=== PATIENT | female | born 1930 | race Hispanic/Latino ===

== ENCOUNTER 2017-11-09 09:02 | Observation (INO) | payer MEDICARE, OTHER ==
[2017-11-06 14:04] LABS: BASOPHILS # (AUTO) 0.1 (0.0-0.1); BASOPHILS % 0.9 % (0.0-1.0); EOSINOPHILS # (AUTO) 0.4 (0.0-0.4); EOSINOPHILS % 7.2 % (0.0-6.0); HEMATOCRIT 38.6 % (34.2-44.1); HEMOGLOBIN 12.3 g/dL (12.0-16.0); LYMPHOCYTES # (AUTO) 2.1 (1.0-3.2); LYMPHOCYTES % 36.9 % (18.0-39.1); MEAN CORPUSCULAR HEMOGLOBIN 30.8 pg (28-32); MEAN CORPUSCULAR HGB CONC 31.9 g/dL (31-35); MEAN CORPUSCULAR VOLUME 96.5 fL (81-99); MONOCYTES # (AUTO) 0.3 (0.2-0.8); MONOCYTES % 5.8 % (4.4-11.3); NEUTROPHILS # (AUTO) 2.8 (2.1-6.9); PLATELET COUNT 316 x10e3/uL (140-360); RED CELL DISTRIBUTION WIDTH 12.6 % (11.7-14.4)
[2017-11-06 14:33] LABS: ANION GAP 15.5 mmol/L (8-16); BLOOD UREA NITROGEN 26 mg/dL (7-26); BUN/CREATININE RATIO 31 (6-25); CALCIUM 9.3 mg/dL (8.4-10.2); CARBON DIOXIDE 27 mmol/L (22-29); CHLORIDE 102 mmol/L (98-107); CREATININE, SERUM 0.85 mg/dL (0.57-1.11); EST GLOMERULAR FILTRATION RATE > 60 ML/MIN (60-); GLUCOSE 140 mg/dL (74-118); SODIUM 139 mmol/L (136-145)
[2017-11-06 14:36] LABS: POTASSIUM 5.5 mmol/L (3.5-5.1)
--- NOTE | 2017-11-06 14:49 | Diagnostic Imaging Report ---
PROCEDURE: Frontal and lateral views of the chest. COMPARISON: None. INDICATIONS: PREOP KNEE SURGERY FINDINGS: Lines/tubes: None. Lungs: The lungs are well inflated and grossly clear. There is no evidence of pneumonia or pulmonary edema. Pleura: There is no pleural effusion or pneumothorax. Heart and mediastinum: The heart and the mediastinum are normal. Bones: No acute bony abnormality. Generalized osteopenia. Degenerative changes in the thoracic spine. IMPRESSION: 1. No acute cardiopulmonary abnormalities. uFad Turcios M.D. Dictated by: Fuad Turcios M.D. on 11/06/2017 at 14:58 Electronically approved by: Fuad Turcios M.D. on 11/06/2017 at 14:58
[~2017-11-09] VITALS: Ht 152.4 cm; Wt 63.5 kg
[~2017-11-09 09:02] MED LIST: CEFAZOLIN SOD 2 GM/D5W 50ML 50 ML IV ONE; DEXAMETHASONE SOD PHOS 10 MG/1 ML VIAL ONE; DIOVAN160 MG PO; GABAPENTIN 300 MG CAP ONE; LEXAPRO10 MG PO; METFORMIN HCL1000 MG PO; PANTOPRAZOLE SO40 MG PO; ROPIVACAINE 246.25 MG, EPINEPHRINE HCL 1:1000 0.5 MG, CLONIDINE HCL 0.08 MG, KETOROLAC ... INJ ONE; SIMVASTATIN20 MG PO
--- OUTSIDE RECORDS SUMMARY | 2017-11-09 09:04 | XMS REPORT | Clinical Summary ---
Author Author [facility] Address Unknown Phone Unavailable Care Team Providers Care Sales Warehouse Driver Name Role Phone PCP Unavailable Allergies Not on File Current Medications Not on file Active Problems Not on file Encounters Date Type Specialty Care Team Description 06/13/2017 Emergency Emergency Medicine after 11/08/2016 Social History Tobacco Use Types Packs/Day Years Used Date Never Assessed Sex Assigned at Date Recorded Not on file Last Filed Vital Signs Not on file Plan of Treatment Not on file Results Not on fileafter 11/08/2016
--- OUTSIDE RECORDS SUMMARY | 2017-11-09 09:04 | XMS REPORT ---
Author [facility] Address Unknown Phone Unavailable Care Team Providers Care Sales Process Manager Name Role Phone ASHLEE MERCHANT DAIJA Unavailable KERMIT BURNS Unavailable Unavailable Problems This patient has no known problems. Allergies, Adverse Reactions, Alerts This patient has no known allergies or adverse reactions. Medications This patient has no known medications. Encounters Start Date/Time End Date/Time Encounter Type Admission Type Attending Clinicians Care Facility Care Department Encounter ID 2017-06-07 13:42:00 2017-06-07 13:42:00 Emergency E [facility] MED [id number] Results Test Description Test Time Test Comments Text Results Atomic Results Result Comments XR KNEE 2V.-LEFT 2017-06-07 14:37:44 Dictation location [id number] knee 2 viewsHISTORY: Pain.COMMENT: The bones are osteoporotic. There is no acute fracture ordislocation. There is a small joint effusion. There is significantnarrowing of the patellofemoral, medial and lateral knee joints withchondrocalcinosis. There are scattered vascular calcifications. Softtissues are intact.Impression:1. Osteoporosis with tricompartment degenerative joint disease,chondrocalcinosis and small joint effusion.2. Nothing acute seen. CHEST 2 VIEWS [facility] [address] [address] Patient Name: ALEXA WILDER MR #: [id number] : 1930 Age/Sex: 87/F Req # : [id number] Adm Physician: Ordered by: KERMIT BURNS MD Report #: [id number] Location: OR Room/Bed: Procedure: [id number] DX/CHEST 2 VIEWS Exam Date: 11/06/17 Exam Time: 1430 REPORT STATUS: Signed PROCEDURE: Frontal and lateral views of the chest. COMPARISON: None. INDICATIONS: PREOP KNEE SURGERY FINDINGS: Lines/tubes: None. Lungs: The lungs are well inflated and grossly clear. There is no evidence of pneumonia or pulmonary edema. Pleura: There is no pleural effusion or pneumothorax. Heart and mediastinum: The heart and the mediastinum are normal. Bones: No acute bony abnormality. Generalized osteopenia. Degenerative changes in the thoracic spine. IMPRESSION: 1. No acute cardiopulmonary abnormalities. Seven Turcios M.D. Dictated by: Seven Turcios M.D. on 11/06/2017 at 14:58 Electronically approved by: Seven Turcios M.D. on 11/06/2017 at 14:58 Dictated By: SEVEN TURCIOS MD 1458 Transcribed By: DWIGHT on 11/06/17 1458 COPY TO: KERMIT BURNS MD
[2017-11-09] MEDS ORDERED: CELECOXIB 200 MG CAP PO ONE (09:25)
[2017-11-09] MEDS ORDERED: LIDOCAINE 2% /EPINEPHRINE 20 ML SDV INJ ONE (09:40)
[2017-11-09] MEDS ORDERED: BACITRACIN 50,000 UNIT VIAL ONE (10:06)
[2017-11-09] MEDS ORDERED: TRANEXAMIC ACID 1,000 MG/10 ML ML ONE (10:06)
[2017-11-09] MEDS ORDERED: MUPIROCIN 2% OINT 22 GM TUBE ONE (10:06)
[2017-11-09] MEDS ORDERED: SODIUM CHLORIDE 0.9% 1000ML 1,000 ML IV SCH (12:13)
[2017-11-09] MEDS ORDERED: DOCUSATE SODIUM 100 MG CAP PO PRN (12:15)
[2017-11-09] MEDS ORDERED: KETOROLAC TROMETHAMINE 30 MG/ML VIAL IV PRN (12:15)
[2017-11-09] MEDS ORDERED: ZOLPIDEM TARTRATE 5 MG TAB PO PRN (12:15)
[2017-11-09] MEDS ORDERED: ONDANSETRON HCL INJ 2 MG/ML VIAL IV PRN (12:15)
[2017-11-09] MEDS ORDERED: PROMETHAZINE HCL (IM) 25 MG/ML VIAL INJ PRN (12:15)
[2017-11-09] MEDS ORDERED: DIPHENHYDRAMINE HCL INJ 50 MG/ML VIAL IM/IV PRN (12:15)
[2017-11-09] MEDS ORDERED: FENTANYL CITRATE/PF 100MCG/2 ML INJ ONE ×2 (13:45→18:33)
--- NOTE | 2017-11-09 13:46 | Diagnostic Imaging Report ---
PROCEDURE:KNEE LEFT 1-2 VIEWS TECHNIQUE:AP and lateral views left knee INDICATION:Postop evaluation COMPARISON:None. FINDINGS: See conclusion. CONCLUSION: 1. Total left knee arthroplasty intact and in anatomic alignment. 2. Expected regional postsurgical changes without acute abnormality. Dictated by: Vamshi Nunez M.D. on 11/09/2017 at 13:55 Electronically approved by: Vamshi Nunez M.D. on 11/09/2017 at 13:55
[2017-11-09] MEDS ORDERED: CEFAZOLIN SOD 1 GM/NS 50ML 50 ML IV SCH (14:00)
[2017-11-09] MEDS: CELECOXIB 200 MG CAP PO SCH (17:00)
[2017-11-09] MEDS ORDERED: SODIUM CHLORIDE 0.9% 50ML 50 ML ONE (17:43)
[2017-11-09] MEDS: CEFAZOLIN SOD 1 GM VIAL IV SCH (18:00)
[2017-11-09] MEDS: ACETAMINOPHEN 1000 MG/100 ML IV SCH ×2 (18:00→23:50)
[2017-11-09] MEDS ORDERED: MIDAZOLAM HCL 2 MG/2 ML VIAL ONE (18:33)
[2017-11-09] MEDS ORDERED: ONDANSETRON HCL INJ 2 MG/ML VIAL ONE (18:42)
[2017-11-09] MEDS ORDERED: EPHEDRINE SULFATE INJ 50 MG/10 ML SYR ONE (18:42)
[2017-11-09] MEDS ORDERED: PROPOFOL IV EMULSION 10 MG/ML 20 ML VIAL ONE (18:42)
[2017-11-09] MEDS ORDERED: SEVOFLURANE INHAL SOLN 250 ML PEN BTL ONE (18:42)
[2017-11-09] MEDS ORDERED: LIDOCAINE HCL 2% LOCAL INJ 5 ML SDV VIAL INJ ONE (18:42)
[2017-11-09 20:05] VITALS: BP 133/69
--- OUTSIDE RECORDS SUMMARY | 2017-11-09 20:29 | XMS REPORT | Clinical Summary ---
Author Author [facility] Address Unknown Phone Unavailable Care Team Providers Care Wild Life Photographer Name Role Phone PCP Unavailable Allergies Not [...]
[2017-11-09 20:49] VITALS: BP 134/60
[2017-11-09 22:00] VITALS: BP 134/60
[2017-11-09] MEDS: ASPIRIN 325 MG TAB PO SCH (22:30)
[2017-11-10] MEDS: CEFAZOLIN SOD 1 GM VIAL IV SCH ×2 (01:56→10:07)
[2017-11-10 02:30] VITALS: BP 119/57
[2017-11-10] MEDS: ACETAMINOPHEN 1000 MG/100 ML IV SCH ×2 (05:43→11:43)
[2017-11-10 06:05] VITALS: BP 115/56
[2017-11-10 07:10] LABS: HEMATOCRIT 30.5 % (34.2-44.1); HEMOGLOBIN 9.8 g/dL (12.0-16.0)
[2017-11-10 08:12] VITALS: BP 107/63
[2017-11-10] MEDS: CELECOXIB 200 MG CAP PO SCH (08:18)
[2017-11-10] MEDS: ASPIRIN 325 MG TAB PO SCH (08:18)
--- NOTE | 2017-11-10 08:33 | Consultation ---
DATE OF CONSULTATION: November 10, 2017 MEDICINE CONSULT REASON FOR CONSULT: Medical management. HISTORY OF PRESENT ILLNESS: This is an 87-year-old woman who underwent elective left total knee replacement on Thursday, November 09, 2017. This surgery was performed successfully by Dr. Rolo Aguiar. The patient tolerated the surgery well. The patient voices no complaints. The patient states her pain is well controlled. The patient denies any chest pain, shortness of breath or cough. Chest x-ray performed 3 days prior to admission did not reveal any intrathoracic pathology. Blood work done on the day of surgery revealed a potassium of 5. The patient's hemoglobin 3 days prior to surgery was 12.3 g/dL. Today, hemoglobin is 9.8 g/dL. REVIEW OF SYSTEMS GENERAL: Weight is stable. No fever or chills. No fatigue. HEENT: No headaches. No visual changes. CARDIOVASCULAR/RESPIRATORY: No chest pain, shortness of breath or cough. GI: No nausea, vomiting or diarrhea. : No UTI. The patient's Carlos catheter has been removed. NEUROMUSCULAR: The patient states her left knee pain is well controlled. ALLERGIES: CODEINE. FAMILY HISTORY: Noncontributory. SOCIAL HISTORY: This woman is . She lives with her adult son. No history of tobacco, alcohol abuse. SURGICAL HISTORY 1. Left total knee replacement on November 09, 2017. 2. Right total knee replacement. 3. Open cholecystectomy. 4. Total abdominal hysterectomy with salpingo-oophorectomy. 5. Appendectomy. HOME MEDICATIONS 1. Lexapro 10 mg a day. 2. Metformin 1000 mg a day. 3. Pantoprazole 40 mg daily. 4. Simvastatin 20 mg at bedtime. 5. Valsartan 160 mg daily. PAST MEDICAL HISTORY 1. Type 2 diabetes mellitus. 2. Hypertensive heart disease. 3. GERD. 4. Depression. 5. Hyperlipidemia. 6. Bilateral knee degenerative joint disease. 7. Generalized osteoarthritis. PHYSICAL EXAMINATION GENERAL: She is awake, alert and fully oriented. She is very pleasant and cooperative with exam. Her adult son is at bedside. VITALS: Height is 5 feet zero inches, weight 140 pounds. Calculated body mass index 27. Blood pressure 115/56, pulse 58, respiratory rate 18, temperature 96, oxygen saturation is 97% on room air. INTEGUMENT: Skin is warm and dry. No pallor. HEENT: Clear conjunctivae. Anicteric sclerae with moist mucous membranes. NECK: Supple. No evidence of jugular venous distention. CARDIOVASCULAR: Regular rate and rhythm with an S3 and S4 gallop. LUNGS: No rales. No rhonchi. No wheezes. ABDOMEN: Benign. EXTREMITIES: No edema but she does have osteoarthritic joint deformities in her hands. The patient has sequential compression devices in place on her lower extremities. NEUROLOGIC: Intact. No gross focal neurologic deficits appreciated. DIAGNOSES 1. Status post left total knee replacement. 2. Type 2 diabetes mellitus. 3. Hypertensive heart disease. 4. Acute postoperative anemia. PLAN 1. Mobilize with physical therapy today. 2. Pain control. 3. Follow hemoglobin and hematocrit. 4. Blood pressure control. 5. Blood glucose control. 6. Discontinue intravenous fluids since the patient may have underlying diastolic heart failure. 7. Stop intravenous ketorolac since this could affect her kidney function particularly at her age. 8. Discontinue telemetry. 9. Encourage incentive spirometer usage every hour from 7 am to 7 pm. I would like to thank Dr. Aguiar for this very generous consult. I spent 45 minutes in the care of this patient. Job#: [id number] AMINTA IVY
[2017-11-10 08:37] LABS: ALBUMIN/GLOBULIN RATIO 1.1 (0.8-2.0); ANION GAP 13.1 mmol/L (8-16); CALCIUM 7.9 mg/dL (8.4-10.2); CREATININE, SERUM 0.91 mg/dL (0.57-1.11); POTASSIUM 5.1 mmol/L (3.5-5.1)
[2017-11-10] MEDS ORDERED: PANTOPRAZOLE SOD 40 MG TABEC PO SCH (09:00)
[2017-11-10] MEDS ORDERED: VALSARTAN 160 MG TAB PO SCH (09:00)
[2017-11-10] MEDS ORDERED: ESCITALOPRAM OXALATE 10 MG TAB PO SCH (09:00)
--- NOTE | 2017-11-10 09:34 | Operative Report ---
DATE OF PROCEDURE: November 09, 2017 STRUCTURAL MANAGER: Mesfin Bartholomew PA-C The patient was brought to the operating room for induction of anesthesia. Throughout this case, my PA's assistance was necessary for retraction of soft tissue and positioning of the extremity. This allows for efficient and technically successful execution of the operation and is considered medically necessary. PREOPERATIVE DIAGNOSIS: Osteoarthritis, left knee. POSTOPERATIVE DIAGNOSIS: Osteoarthritis, left knee. PROCEDURE: Left total knee arthroplasty. INDICATIONS: The patient is an 87-year-old lady who has end-stage arthritis of her left knee. She has been through a right knee replacement many years ago. She presented to my office on a number of occasions wanting to proceed with a left total knee replacement. The risks and benefits were discussed at length. The added challenges due to her age and medical frailty were explained. The patient stated she could not "go on like this". We discussed this with her family. We went through an extensive preoperative medical clearance. We now plan on a left total knee replacement. She understands the potential risks and wishes to proceed. DESCRIPTION OF PROCEDURE: The patient was brought to the operating room and placed under general anesthetic. She received prophylactic antibiotics, a regional block and tranexamic acid in the holding area. Her left lower extremity was prepped and draped in a sterile manner. A preoperative time out was performed. The extremity was exsanguinated and a proximal tourniquet was initially inflated to 300 mmHg. An incision was made and a medial parapatellar arthrotomy was performed. Significant venous bleeding was encountered. A wet lap sponge was placed on the wound, and the tourniquet was deflated. The extremity was exsanguinated. The tourniquet was inflated one more time to 300 mmHg. We felt that this bleeding had been to a blood pressure spike. However, once again, there was significant venous bleeding in the wound. The tourniquet was deflated one more time, and the extremity was exsanguinated one more time. At this time, the tourniquet was inflated to 350 mmHg. Unfortunately, there was still persistent venous bleeding. We elected to proceed. Soft tissue releases were performed. The knee was brought up into flexion with the patella everted. The remnant of the cruciate ligaments, marginal osteophytes and meniscal remnants were all excised. A [employer]hew Bre II posterior stabilized knee system was used. An extramedullary cutting guide was used to resect the proximal tibia. The tibial baseplate was a size #4. The central fen punch was impacted, and attention was directed towards the distal femur. Notable osteoporosis was encountered in the proximal tibia. As such, care was taken throughout the case to be gentle with manipulation. An intramedullary cutting guide was used to resect the distal femur in 6 degrees of valgus and rotation referenced off of a combination of landmarks, including Oneonta's line, the epicondylar axis and the posterior condyles. The femoral component was also a size #4. The anterior and posterior cuts were made. Slight notching of the anterior femoral cortex was encountered. Trial reductions were performed. A 9 mm ultra congruent tibial insert provided appropriate soft tissue balancing and stability in both full extension and flexion. The patella was resurfaced with a 29 mm x 7.5 mm patellar button. The thickness was checked before and after and was 22 mm. Patellar tracking was noted to be concentric. The trial implants were then all removed. The knee was thoroughly irrigated with a Pulsavac. A 100 mL premixed pericapsular injection was placed into the soft tissue. The knee was thoroughly irrigated with a Pulsavac further. The components were cemented into place using a single mix of Palicos cement pre-loaded with gentamicin. Care was taken to remove extravasated cement. The area of slight notching in the anterior cortex was reinforced with some bone cement. The wound was further irrigated while the cement cured. The arthrotomy was then closed with interrupted #1 Ethibond. The knee was put through flexion and extension to ensure a secure closure. The skin was then carefully closed with subcuticular Vicryl and albertina. A sterile bandage was applied. The patient was extubated and transported to the recovery room in stable condition. Blood loss was approximately 150 mL. All needle and sponge counts were correct. Job#: [id number] AMINTA
[2017-11-10] MEDS ORDERED: LIDOCAINE 1% 5ML-MPF INJ ONE (10:00)
[2017-11-10] MEDS ORDERED: ASPIRIN325 MG PO (11:01)
[2017-11-10 11:28] VITALS: BP 127/60
[2017-11-10] MEDS ORDERED: HYDROCODONE/APAP 7.5MG-325MG 1 EA TAB PO PRN (16:00)
[2017-11-10] MEDS ORDERED: HYDROCODONE/APAP 5MG-325MG TAB PO PRN (16:00)
[2017-11-10] MEDS ORDERED: ACETAMINOPHEN 650 MG SUPP PR PRN (16:00)
[2017-11-10] MEDS ORDERED: ACETAMINOPHEN 1000 MG/100 ML IV PRN (18:00)
[2017-11-10] MEDS ORDERED: SIMVASTATIN 20 MG TAB PO SCH (21:00)
--- NOTE | 2017-12-11 15:28 | Discharge Summary ---
CHIEF COMPLAINT: Left knee pain. HISTORY OF PRESENT ILLNESS: This patient is a an 87-year-old female who complains of left knee pain for over 5 months. The patient states that she has had pain before that but it was worsened when she twisted her knee. She has tried cortisone injections as well as anti-inflammatories without lasting relief. X-rays are consistent with end-stage arthritis of the left knee. The options were discussed. She feels she has failed conservative management. The risks and benefits of a left total knee replacement were explained. The patient states she understands and wishes to proceed. HOSPITAL COURSE: The patient underwent a left total knee replacement without complications. She was then transferred to the recovery room and the floor in stable condition. She progressed nicely with postoperative physical therapy. She remained stable throughout her hospital stay. She was able to be discharged home on postop day 1. PRINCIPAL DIAGNOSIS: Osteoarthritis of the left knee. PRINCIPAL PROCEDURE: Left total knee replacement. DISCHARGE INSTRUCTIONS: The patient was discharged home with home health and physical therapy arranged. She was to be weightbearing as tolerated with a rolling walker. She was to resume her home medications as directed. She was to take aspirin twice a day for thromboprophylaxis. She was to follow up in our office in roughly 8 to 10 days. Dictated by Mesfin Bartholomew PA-C KERMIT BURNS MD Job#: [id number]
== END 2017-11-10 14:11 | disposition home health service (06) ==
LOC: OR 09:02 → INTOOBSV 20:26 → MED/SURG 20:26
PROVIDERS: ADMIT Specialist; ATTEND Specialist
DX: M17.12 Unilateral primary osteoarthritis, left knee (principal); E11.9 Type 2 diabetes mellitus without complications; F41.9 Anxiety disorder, unspecified; Z96.651 Presence of right artificial knee joint; Z88.5 Allergy status to narcotic agent; D62 Acute posthemorrhagic anemia; M81.0 Age-related osteoporosis without current pathological fracture; I11.9 Hypertensive heart disease without heart failure; K21.9 Gastro-esophageal reflux disease without esophagitis; E78.5 Hyperlipidemia, unspecified; F32.9 Major depressive disorder, single episode, unspecified
CPT/HCPCS: 27447; 36415 ×3; 71046; 73560; 80048; 80053; 82948 ×2; 84132; 85014; 85018; 85025; 86850; 86900; 86920; 93005; 97116 ×2; 97161; C1713; G0378 ×2; G8978; G8979; J0171; J0690 ×2; J1100; J1885 ×2; J2001 ×2; J2250; J2405; J2795; J7030